=== PATIENT | male | born 1985 | race Asian ===

== ENCOUNTER 2016-09-01 03:53 | Emergency (ER) | payer SELFPAY | END 2016-09-01 05:46 | disposition home or self-care (01) | LOC: CED 03:53 | DX: L50.9 Urticaria, unspecified (principal) | CPT/HCPCS: 99282 ==

== ENCOUNTER 2016-09-02 00:57 | Emergency (ER) | payer SELFPAY | END 2016-09-02 03:27 | disposition home or self-care (01) | LOC: CED 00:57 | DX: L50.1 Idiopathic urticaria (principal); Z98.890 Other specified postprocedural states | CPT/HCPCS: 99282 ==